=== PATIENT | male | born 1950 | race Caucasian/White ===

== ENCOUNTER 2024-07-18 09:23 | Emergency (ER) | payer MEDICARE, OTHER ==
[~2024-07-18] VITALS: Ht 170.2 cm; Wt 81.6 kg
[2024-07-18] MEDS ORDERED: HYDROCODONE/APAP 10/325MG TABLET ONE (10:57)
[2024-07-18] MEDS: HYDROCODONE/APAP 10/325MG TABLET PO ONE (11:04)
[2024-07-18] MEDS ORDERED: DOCU-141 PO (11:58)
[2024-07-18] MEDS ORDERED: HYDR-3972 PO (11:58)
[2024-07-18] MEDS ORDERED: BACK1EAC12 MC (12:02)
[2024-07-18 12:38] VITALS: BP 135/86; TEMP 98.5; O2SAT 100
== END 2024-07-18 12:39 | disposition home or self-care (01) ==
LOC: ER 09:33
DX: S32.018A Other fracture of first lumbar vertebra, initial encounter for closed fracture (principal); I10 Essential (primary) hypertension; V09.9XXA Pedestrian injured in unspecified transport accident, initial encounter; Y93.89 Activity, other specified; Y92.410 Unspecified street and highway as the place of occurrence of the external cause; Y99.8 Other external cause status
CPT/HCPCS: 71045-TC; 72131-TC; 73552